=== PATIENT | female | born 1980 | race African-American/Black ===

== ENCOUNTER 2017-02-02 11:03 | Emergency (ER) | payer OTHER ==
[~2017-02-02] VITALS: Ht 167.6 cm; Wt 115.7 kg
[2017-02-02 12:15] VITALS: BP 157/88
== END 2017-02-02 12:15 | disposition home or self-care (01) ==
LOC: ER 11:03
DX: J02.8 Acute pharyngitis due to other specified organisms (principal); B00.1 Herpesviral vesicular dermatitis; J45.909 Unspecified asthma, uncomplicated

== ENCOUNTER 2017-09-23 00:32 | Emergency (ER) | payer OTHER ==
[~2017-09-23] VITALS: Ht 167.6 cm; Wt 129.3 kg
[2017-09-23] MEDS ORDERED: VENTOLIN HFA INH8 GM INH (00:37)
[2017-09-23] MEDS ORDERED: ALBUTEROL2.5 MG/31 INH (00:38)
== END 2017-09-23 02:00 | disposition home or self-care (01) ==
LOC: ER 00:32
DX: J02.0 Streptococcal pharyngitis (principal); J45.909 Unspecified asthma, uncomplicated

== ENCOUNTER 2017-10-15 18:35 | Emergency (ER) | payer OTHER ==
[~2017-10-15] VITALS: Ht 172.7 cm; Wt 93.0 kg
[~2017-10-15 18:35] MED LIST: ALBUTEROL2.5 MG/31 INH; VENTOLIN HFA INH8 GM INH
[2017-10-15 19:27] LABS: URINE BILIRUBIN NEGATIVE (Negative); URINE BLOOD NEGATIVE (Negative); URINE CLARITY CLEAR; URINE COLOR YELLOW; URINE GLUCOSE-RANDOM* NEGATIVE (Negative); URINE KETONES TRACE (Negative); URINE NITRITE-REFLEX NEGATIVE (Negative); URINE PROTEIN (DIPSTICK) NEGATIVE (Negative); URINE SPECIFIC GRAVITY 1.025 (1.005-1.035)
[2017-10-15 19:30] LABS: URINE LEUKOCYTES-REFLEX TRACE (Negative)
[2017-10-15 19:51] LABS: ABSOLUTE NEUTROPHILS 2.5 thou/uL (1.4-8.2); BASOPHILS 0.7 % (0.0-2.0); EOSINOPHILS 4.4 % (0.0-3.0); HEMATOCRIT 32.5 % (37.0-47.0); HEMOGLOBIN 10.4 gm/dL (12.0-15.0); LYMPHOCYTES 38.1 % (24.0-44.0); MCH 26.2 pg (26.0-34.0); MCHC 32.1 g/dL (28.0-37.0); MCV 81.5 fL (80.0-100.0); MONOCYTES 7.4 % (1.0-8.0); PLATELET COUNT 319 thou/uL (150-400); POLYS 49.4 % (36.0-66.0); RBC 3.98 mil/uL (4.20-5.00); RDW 15.6 % (10.5-14.5)
[2017-10-15 19:57] LABS: CALCIUM 8.3 mg/dL (8.5-10.1); CREATININE 0.9 mg/dL (0.6-1.0); POTASSIUM 3.6 mmol/L (3.5-5.1)
[2017-10-15 20:03] LABS: ALBUMIN 3.2 g/dL (3.4-5.0); TOTAL BILIRUBIN 0.2 mg/dL (<0.1-1.0); TOTAL PROTEIN 7.1 g/dL (6.4-8.2)
[2017-10-15] MEDS ORDERED: COLACE100 MG PO (20:48)
== END 2017-10-15 20:57 | disposition home or self-care (01) ==
LOC: ER 18:35
PROVIDERS: Physician Assistant
DX: R10.31 Right lower quadrant pain (principal); K59.00 Constipation, unspecified; J45.909 Unspecified asthma, uncomplicated

== ENCOUNTER 2018-10-12 04:35 | Emergency (ER) | payer OTHER ==
[~2018-10-12] VITALS: Ht 167.6 cm; Wt 133.8 kg
[~2018-10-12 04:35] MED LIST changes: +COLACE100 MG PO
[2018-10-12 05:17] VITALS: BP 133/93
== END 2018-10-12 05:18 | disposition home or self-care (01) ==
LOC: ER 04:35
DX: J02.0 Streptococcal pharyngitis (principal); J45.909 Unspecified asthma, uncomplicated; Z98.890 Other specified postprocedural states

== ENCOUNTER 2019-11-16 23:43 | Emergency (ER) | payer OTHER ==
[~2019-11-16] VITALS: Ht 167.6 cm; Wt 129.3 kg
[2019-11-16] MEDS ORDERED: ACETAMINOPHEN (23:54)
[2019-11-16] MEDS ORDERED: NAPROSYN500 M1 (23:55)
[2019-11-17] MEDS ORDERED: IBUPROFEN200 MG PO (00:01)
[2019-11-17 01:12] VITALS: BP 157/65
== END 2019-11-17 01:12 | disposition home or self-care (01) ==
LOC: ER 23:43
DX: M54.6 Pain in thoracic spine (principal); R07.89 Other chest pain; R06.02 Shortness of breath; J45.909 Unspecified asthma, uncomplicated; Z90.710 Acquired absence of both cervix and uterus; Z79.899 Other long term (current) drug therapy

== ENCOUNTER 2021-03-28 02:22 | Emergency (ER) | payer OTHER ==
[~2021-03-28] VITALS: Ht 167.6 cm; Wt 135.2 kg
[~2021-03-28 02:22] MED LIST changes: +ACETAMINOPHEN; +IBUPROFEN200 MG PO; +NAPROSYN500 M1
[2021-03-28] MEDS ORDERED: PROTONIX40 M2 PO (02:48)
[2021-03-28 03:20] LABS: ABSOLUTE NEUTROPHILS 2.4 thou/uL (1.4-8.2); BASOPHILS 1.2 % (0.0-2.0); EOSINOPHILS 4.9 % (0.0-3.0); HEMOGLOBIN 11.9 gm/dL (12.0-15.0); LYMPHOCYTES 45.5 % (24.0-44.0); MCH 28.2 pg (26.0-34.0); MCHC 32.2 g/dL (28.0-37.0); MCV 87.6 fL (80.0-100.0); MONOCYTES 6.6 % (1.0-8.0); PLATELET COUNT 258 thou/uL (150-400); POLYS 41.8 % (36.0-66.0); RBC 4.22 mil/uL (4.20-5.00); RDW 13.4 % (10.5-14.5); WBC 5.8 thou/uL (4.0-11.0)
[2021-03-28 03:31] LABS: CALCIUM 8.3 mg/dL (8.5-10.1); POTASSIUM 3.8 mmol/L (3.5-5.1)
[2021-03-28 03:38] LABS: ALBUMIN 3.7 g/dL (3.4-5.0); TOTAL BILIRUBIN 0.2 mg/dL (0.2-1.0); TOTAL PROTEIN 7.7 g/dL (6.4-8.2)
[2021-03-28 04:44] VITALS: BP 195/96
--- NOTE | 2021-03-29 07:30 | EKG ---
[place] [address] [facility] [employer] [place] [address] ELECTROCARDIOGRAM REPORT Name: GLORIA WADSWORTH Room #: [facility]#: [id number] Admission: 03/28/21 Attend Phys: Discharge: 03/28/21 Date of : 84 Report #: [id number] [facility] ED Test Date: 2021-03-28 Test Time: 02:30:08 Pat Name: GLORIA WADSWORTH Department: Room: Gender: F [employer]: ROLF : 1980 Requested By: Yonas Hyman Order Number: [id number] MD: Moshe Bear Measurements Intervals [place] Rate: 65 P: 29 ND: 191 QRS: 4 QRSD: 108 T: 34 QT: 437 QTc: 455 Interpretive Statements Sinus rhythm Baseline wander in lead(s) I No previous ECG available for comparison Electronically Signed On 03-29-2021 7:30:25 CDT by Moshe Bear [email or web address] <ELECTRONICALLY SIGNED> By: Moshe Bear MD, [facility] 03/29/21 0730 0230 0230 Moshe Bear MD, FACC /EPI
== END 2021-03-28 04:44 | disposition home or self-care (01) ==
LOC: ER 02:22
PROVIDERS: Student in an Organized Health Care Education/Training Program
DX: S46.811A Strain of other muscles, fascia and tendons at shoulder and upper arm level, right arm, initial encounter (principal); J45.909 Unspecified asthma, uncomplicated; Z79.899 Other long term (current) drug therapy; Z90.710 Acquired absence of both cervix and uterus; Z20.822 Contact with and (suspected) exposure to COVID-19; X50.0XXA Overexertion from strenuous movement or load, initial encounter; Y93.89 Activity, other specified; Y92.89 Other specified places as the place of occurrence of the external cause; Y99.9 Unspecified external cause status

== ENCOUNTER 2021-06-07 17:17 | Emergency (ER) | payer BC ==
[~2021-06-07] VITALS: Ht 167.6 cm; Wt 137.0 kg
[~2021-06-07 17:17] MED LIST changes: +PROTONIX40 M2 PO
[2021-06-07 17:45] VITALS: BP 175/100
== END 2021-06-07 17:45 | disposition home or self-care (01) ==
LOC: ER 17:17
PROVIDERS: Nurse Practitioner
DX: J06.9 Acute upper respiratory infection, unspecified (principal); Z20.822 Contact with and (suspected) exposure to COVID-19; J45.909 Unspecified asthma, uncomplicated; Z98.890 Other specified postprocedural states; Z90.710 Acquired absence of both cervix and uterus; Z79.51 Long term (current) use of inhaled steroids; Z79.899 Other long term (current) drug therapy; Z88.0 Allergy status to penicillin